=== PATIENT | female | born 1975 | race Caucasian/White ===

== ENCOUNTER 2022-10-08 21:26 | Emergency (ER) | payer OTHER ==
[2022-10-08] MEDS ORDERED: Ketorolac Tromethamine 30 MG/ML VIAL ONE (21:57)
[2022-10-08] MEDS ORDERED: Ondansetron PF 4 MG/2 ML Vial ONE (21:57)
[2022-10-08] MEDS ORDERED: Morphine 4 MG/ML VIAL ONE ×2 (21:57→22:52)
[2022-10-08] MEDS ORDERED: Diazepam 10 MG/2 ML SYRINGE ONE (23:36)
[2022-10-09] MEDS ORDERED: HYDROmorphone 0.5 MG/0.5 ML SYRINGE ONE ×2 (00:05→01:10)
== END 2022-10-09 02:40 | disposition home or self-care (01) ==
LOC: BURERS 21:26
DX: M54.42 Lumbago with sciatica, left side (principal)
CPT/HCPCS: 72131; 72192; 96374; 96375; 96376; J1170; J1885; J2270; J2405; J3360

== ENCOUNTER 2023-01-15 00:30 | Emergency (ER) | payer OTHER ==
[2023-01-15] MEDS ORDERED: methylPREDNISolone Sod Succ/PF 125 MG/2 ML VIAL ONE (01:34)
[2023-01-15] MEDS ORDERED: Cefepime 2 GM VIAL ONE (01:34)
[2023-01-15] MEDS ORDERED: HYDROmorphone 0.5 MG/0.5 ML SYRINGE ONE ×3 (01:35→02:52)
[2023-01-15 02:03] LABS: #Eosinphils 0.2 thou/uL (0.0-0.7); #Lymphocytes 1.1 thou/uL (1.20-3.40); #Monocytes 0.4 thou/uL (0.11-0.59); #Neutrophils 4.1 thou/uL (1.40-6.50); %Basophils 0.8 % (0.0-1.0); %Lymphocytes 19.3 % (21.0-51.0); %Monocytes 6.8 % (0.0-10.0); %Neutrophils 69.1 % (42.0-75.0); Hemoglobin 12.2 g/dL (12.0-16.0); Mean Corpuscular HGB CONC 33.4 g/dL (32.0-36.0); Mean Corpuscular Hemoglobin 27.6 pg (27.0-31.0); Mean Corpuscular Volume 82.6 fl (78.0-98.0); Mean Platelet Volume 6.4 fL (7.4-10.4); Platelet Count 205 10x3/uL (130-400); RBC Distribution Width 13.1 % (11.5-14.5); Red Blood Cell (RBC) Count 4.43 mill/uL (4.20-5.40); White Blood Cell (WBC) Count 5.9 10x3/uL (4.8-10.8)
[2023-01-15 02:18] LABS: ALT (SGPT) 28 U/L (8-55); AST (SGOT) 17 U/L (5-34); Albumin 3.5 g/dL (3.5-5.0); Alkaline Phosphatase 113 U/L (40-110); Anion Gap 12 mmol/L (10-20); BUN (Urea Nitrogen) 13 mg/dL (7.0-18.7); Bilirubin, Total 0.7 mg/dL (0.2-1.2); CRP (Inflammatory) 1.79 mg/dL (= or < 0.5); Calc. Creatinine Clearance 0 mL/min (70-130); Calcium 8.8 mg/dL (7.8-10.44); Carbon Dioxide 28 mmol/L (22-29); Chloride 100 mmol/L (98-107); Estimated GFR 110; Globulin 2.2 g/dL (2.4-3.5); Glucose 291 mg/dL (70-105); Potassium 4.1 mmol/L (3.5-5.1); Protein, Total 5.7 g/dL (6.0-8.3); Sodium 136 mmol/L (136-145)
[2023-01-15] MEDS ORDERED: Ondansetron PF 4 MG/2 ML Vial ONE (02:51)
== END 2023-01-15 03:24 | disposition short-term general hospital (02) ==
LOC: BURERS 00:30
DX: M54.50 Low back pain, unspecified (principal); W19.XXXA Unspecified fall, initial encounter
CPT/HCPCS: 72100; 80053; 85025; 86140; 96365; 96375; J0692; J1170; J2405; J2930

== ENCOUNTER 2023-03-18 21:10 | Emergency (ER) | payer OTHER ==
[2023-03-18] MEDS ORDERED: Dexamethasone 10 MG/ML VIAL ONE (21:32)
[2023-03-18] MEDS ORDERED: Morphine 10 MG/ML VIAL ONE (21:32)
== END 2023-03-18 22:13 | disposition home or self-care (01) ==
LOC: BURERS 21:10
DX: M54.9 Dorsalgia, unspecified (principal)
CPT/HCPCS: 96372; 99283; J1100; J2270

== ENCOUNTER 2023-04-11 22:58 | Emergency (ER) | payer OTHER ==
[2023-04-12] MEDS ORDERED: HYDROcodone/Acetaminophen 10/325 mg Tablet ONE (00:01)
== END 2023-04-12 00:04 | disposition home or self-care (01) ==
LOC: BURERS 22:58
DX: M54.16 Radiculopathy, lumbar region (principal); G89.29 Other chronic pain; L76.34 Postprocedural seroma of skin and subcutaneous tissue following other procedure
CPT/HCPCS: 99283